=== PATIENT | female | born 1985 | race Caucasian/White ===

== ENCOUNTER 2018-04-12 10:52 | Emergency (ER) | payer OTHER, MEDICAID ==
--- NOTE | 2018-04-12 11:06 | EDPHY ---
H & P Time Seen by Provider: 04/12/18 10:55 HPI/ROS: CHIEF COMPLAINT: "I think I had a seizure" HISTORY OF PRESENT ILLNESS: 33-year-old female with self-described history of "stress seizures" arrives via ambulance after she was at the [facility] told staff that she was feeling lightheaded and was having a seizure. No fall. No postictal symptoms. No incontinence. No oral trauma. She has no complaints of pain or discomfort when I evaluated her. No alcohol or drug use. No chronic benzodiazepine use. No medications specifically for seizure disorder. PRIMARY CARE PROVIDER: [facility] REVIEW OF SYSTEMS: A ten point review of systems was performed and is negative with the exception of the items mentioned in the HPI PAST MEDICAL & SURGICAL HISTORY: "Stress seizures" SOCIAL HISTORY:no alcohol use. PHYSICAL EXAM (Prior to examination, patient consented to physical exam, hands were washed and my usual and customary physical exam procedures followed) 1) GENERAL: Well-developed, well-nourished, alert and oriented. Appears to be in no acute distress. Smiling, making jokes appears well 2) HEAD: Normocephalic, atraumatic 3) HEENT: Pupils equal, round, reactive to light bilaterally. Sclera anicteric. No raccoon eyes no Suggs sign. No rhinorrhea. No otorrhea. Nasopharynx, oropharynx, clear, no lesions. No laceration or abrasion Ears bilaterally with normal tympanic membranes. 4) NECK: Full range of motion, no meningeal signs. 5) LUNGS: Clear auscultation bilaterally, no wheezes, no rhonchi, no retractions. 6) HEART: Regular rate and rhythm, no murmur, no heave, no gallop. 7) ABDOMEN: No guarding, no rebound, no focal tenderness, negative McBurney's, negative Carmichael's, negative Rovsing's, negative peritoneal sign, 8) MUSCULOSKELETAL: Moving all extremities, no focal areas of tenderness, no obvious trauma. No peripheral edema or discoloration. 9) BACK: No CVA tenderness, no midline vertebral tenderness, no fluctuance, no step-off, no obvious trauma, no visual or palpable abnormality. 10) SKIN: No rash, no petechiae. 11) Psychiatric: Patient is oriented X 3, there is no agitation. 12) NEURO: Awake, alert, and oriented to person, place and time. Answers questions appropriately. There were no obvious focal neurologic abnormalities. No cerebellar dysfunction. Cranial nerves 2 through to 12 intact. Normal steady gait. Upper and lower extremities bilaterally with strength 5 / 5, reflexes 2+. DIFFERENTIAL DIAGNOSIS: In no particular order including but not limited to epilepsy, seizure, pseudo-seizure, dysrhythmia Constitutional: Initial Vital Signs Temperature (C) 36.6 C 04/12/18 10:52 Heart Rate 73 04/12/18 10:52 Respiratory Rate 16 04/12/18 10:52 Blood Pressure 119/88 H 04/12/18 10:52 O2 Sat (%) 99 04/12/18 10:52 O2 Delivery Mode Room Air Allergies/Adverse Reactions: acetaminophen [From Vicodin] Allergy (Verified 04/12/18 11:13) hydrocodone [From Vicodin] Allergy (Verified 04/12/18 11:13) latex Allergy (Verified 04/12/18 11:13) Home Medications: Medication Instructions Recorded Bp Med 04/12/18 traMADol 04/12/18 Medical Decision Making ED Course/Re-evaluation: Patient was re-evaluated with serial examinations in the ER. Laboratory studies and EKG were obtained showing normal sinus rhythm. The patient had a "stress seizure" while in the ER witnessed by myself manifest by the patient stating that she was having a seizure while she was awake in talking to me. States that she has been evaluated extensively for her "stress seizures" , has had negative imaging including negative EEG. At this time I do not think that further diagnostic studies or hospital admission or emergent neurological consultation is indicated. She does not drive. Usual customary seizure precautions instructions provided. I saw this patient independently based on established practice protocols. Care of patient under supervision of secondary supervising physician Dr Gaytan with whom I discussed case. - Data Points Laboratory Results: Laboratory Results 04/12/18 11:14 04/12/18 11:14 04/12/18 04/12/18 04/12/18 11:14 11:14 11:14 WBC 6.79 10^3/uL 10^3/uL (3.80-9.50) RBC 4.23 10^6/uL 10^6/uL (4.18-5.33) Hgb 12.9 g/dL g/dL (12.6-16.3) Hct 38.6 % % (38.0-47.0) MCV 91.3 fL fL (81.5-99.8) MCH 30.5 pg pg (27.9-34.1) MCHC 33.4 g/dL g/dL (32.4-36.7) RDW 12.7 % % (11.5-15.2) Plt Count 315 10^3/uL 10^3/uL (150-400) MPV 10.1 fL fL (8.7-11.7) Neut % (Auto) 56.3 % % (39.3-74.2) Lymph % (Auto) 32.1 % % (15.0-45.0) [place] % (Auto) 6.3 % % (4.5-13.0) Eos % (Auto) 4.0 % % (0.6-7.6) Baso % (Auto) 1.2 % % (0.3-1.7) Nucleat RBC Rel Count 0.0 % % (0.0-0.2) Absolute Neuts (auto) 3.82 10^3/uL 10^3/uL (1.70-6.50) Absolute Lymphs (auto) 2.18 10^3/uL 10^3/uL (1.00-3.00) Absolute Monos (auto) 0.43 10^3/uL 10^3/uL (0.30-0.80) Absolute Eos (auto) 0.27 10^3/uL 10^3/uL (0.03-0.40) Absolute Basos (auto) 0.08 10^3/uL 10^3/uL (0.02-0.10) Absolute Nucleated RBC 0.00 10^3/uL 10^3/uL (0-0.01) Immature Gran % 0.1 % % (0.0-1.1) Immature Gran # 0.01 10^3/uL 10^3/uL (0.00-0.10) Sodium 143 mEq/L mEq/L (135-145) Potassium 4.5 mEq/L mEq/L (3.3-5.0) Chloride 107 mEq/L mEq/L (97-110) Carbon Dioxide 22 mEq/l mEq/l (22-31) Anion Gap 14 mEq/L mEq/L (8-16) BUN 15 mg/dL mg/dL (7-23) Creatinine 0.6 mg/dL mg/dL (0.6-1.0) Estimated GFR > 60 Glucose 91 mg/dL mg/dL (70-100) Calcium 9.5 mg/dL mg/dL (8.5-10.4) Beta HCG, Qual NEGATIVE Ethyl Alcohol < 10 mg/dL mg/dL (0-10) Departure - Departure Disposition: Home, Routine, Self-Care Clinical Impression: Pseudoseizure Condition: Good Instructions: Epilepsy (ED) Additional Instructions: You may have had a seizure. Until your cleared by the your neurologist do not: Drive, swim alone, climb to heights, operate machinery Referrals: [facility],. [Clinic] - 1-2 days without fail
--- NOTE | 2018-04-12 11:22 | CPEKG ---
Heart Rate: 69 RR Interval: 870 P-R Interval: 188 QRSD Interval: 80 QT Interval: 408 QTC Interval: 437 P Purdon: 25 QRS Purdon: 40 T Wave Purdon: 28 EKG Severity - BORDERLINE ECG - EKG Impression: SINUS RHYTHM EKG Impression: BORDERLINE T ABNORMALITIES, ANTERIOR LEADS Electronically Signed By: Christian Hahn 19-Apr-2018 21:50:37
[2018-04-12 11:33] LABS: PLATELET COUNT 315 10^3/uL (150-400)
[2018-04-12 12:55] VITALS: BP 100/61
--- NOTE | 2018-04-13 09:41 | ASMTCMCOM ---
CM Note CM Note Notes: Patient requesting assistance in getting a Medicaid cab. I eplained process to patient, offered to call for her. Reference # [id number]. I provided patient with the information needed to request cab herself in the future, explaining that there may be a significant wait for a cab "on demand". I explained that this was a good option for her when scheduling out for an appointment, etc. Patient appreciative and happy to wait in ER lobby. She has reference # and phone number if needed Date Signed: 04/13/2018 09:40 AM Electronically Signed By:Dora Madsen RN
== END 2018-04-12 12:53 | disposition home or self-care (01) ==
LOC: EDUNIT# → SUPCPDRO 10:52
DX: G40.89 Other seizures (principal); Z91.040 Latex allergy status
CPT/HCPCS: G0480

== ENCOUNTER → 2018-12-25 | Outpatient (CLI) | payer OTHER, MEDICAID | LOC: FIMAGING 12:39 | PROVIDERS: ATTEND Physician Assistant | DX: N64.3 Galactorrhea not associated with childbirth (principal); Z80.3 Family history of malignant neoplasm of breast ==